=== PATIENT | female | born 1940 | race Caucasian/White ===

== ENCOUNTER 2017-02-08 19:36 | Inpatient (IN) | payer MEDICARE ==
[~2017-02-08] VITALS: Ht 152.4 cm; Wt 51.6 kg
[~2017-02-08 19:36] MED LIST: ALBU8.5H5 INH; ALPR0.5T10 PO; AMIT50TA PO; ASPI-515 PO; BUDE10.2 INH; CITA20TA9 PO; ENAL10TA PO; FURO-93 PO; MAGN400T7 PO; METO25TA91 PO; MONT10TA6 PO; NITR1PAT11 TD; OXYB5TAB7 PO; POTA10TA11 PO; PREDNISONE; TIOT18CA INH
[2017-02-08] MEDS ORDERED: MORPHINE SULFATE 4 MG/ML, 1ML ONE (19:48)
[2017-02-08] MEDS ORDERED: NITROGLYCERIN/D5W PMX 250 ML IV SCH (19:51)
[2017-02-08] MEDS ORDERED: SODIUM CHLORIDE 0.9% 1,000 ML IV ONE (19:51)
[2017-02-08] MEDS ORDERED: ASPIRIN 81 MG TABLET CHEW ONE (19:59)
[2017-02-08] MEDS ORDERED: HEPARIN 25,000 UNITS/500ML PMX 500 ML IV PRN (20:00)
[2017-02-08] MEDS ORDERED: HEPARIN 5,000 UNITS/ML, 1ML IV ONE (20:00)
[2017-02-08] MEDS ORDERED: HEPARIN 5,000 UNITS/ML, 1ML IV PRN (20:00)
[2017-02-08] MEDS ORDERED: SODIUM CHLORIDE FLUSH 10ML SYR IVF ONE ×2 (20:00)
[2017-02-08] MEDS ORDERED: MORPHINE SULFATE 4 MG/ML, 1ML IVPush PRN (20:00)
[2017-02-08] MEDS ORDERED: NITROGLYCERIN/D5W PMX 250 ML ONE (20:00)
[2017-02-08] MEDS ORDERED: HEPARIN 5,000 UNITS/ML, 1ML ONE (20:00)
[2017-02-08] MEDS ORDERED: ASPIRIN 81 MG TABLET CHEW PO ONE (20:00)
[2017-02-08] MEDS ORDERED: HEPARIN 25,000 UNITS/500ML PMX 500 ML ONE (20:16)
[2017-02-08 20:41] LABS: ASPARTATE AMINO TRANSFERASE 21 U/L (15-37); BLOOD UREA NITROGEN 25 mg/dL (7-18)
[2017-02-08 20:47] LABS: IS PT STATUS REG ER OR PRE ER? YES
[2017-02-08 20:53] LABS: ANTI-Xa-UNFRACTIONATED HEP 0.31 IU/mL (0.30-0.70)
[2017-02-08] MEDS ORDERED: PRED20TA PO (20:55)
[2017-02-08] MEDS ORDERED: HYDR-3144 PO (20:56)
[2017-02-08] MEDS ORDERED: TIZA2CAP PO (20:56)
[2017-02-08] MEDS ORDERED: GABA100C8 PO (20:57)
[2017-02-08] MEDS ORDERED: PANT40TA5 PO (20:59)
[2017-02-08] MEDS ORDERED: MELA1TAB15 PO (20:59)
[2017-02-08] MEDS ORDERED: DIPH25CA61 PO (21:03)
[2017-02-08] MEDS ORDERED: ROPI1TAB2 PO (21:06)
[2017-02-08] MEDS ORDERED: CARV6.252 PO (21:06)
[2017-02-08] MEDS ORDERED: FLUTICASONE NASAL (21:06)
[2017-02-08] MEDS ORDERED: FENTANYL PF 100 MCG/2ML ONE (21:28)
[2017-02-08] MEDS ORDERED: MIDAZOLAM 1 MG/ML, 5ML ONE (21:28)
[2017-02-08] MEDS ORDERED: VERAPAMIL 2.5 MG/ML, 2ML ONE (21:28)
[2017-02-08] MEDS ORDERED: BIVALIRUDIN 250 MG ONE (21:29)
[2017-02-08] MEDS ORDERED: HEPARIN 1,000 UNITS/ML, 10ML ONE (21:29)
[2017-02-08] MEDS ORDERED: TICAGRELOR 90 MG TABLET ONE (21:29)
[2017-02-08] MEDS ORDERED: LIDOCAINE 2%, 20ML ONE (21:29)
[2017-02-08] MEDS ORDERED: DIPHENHYDRAMINE 50 MG/ML, 1ML ONE (21:35)
[2017-02-08] MEDS ORDERED: methylPREDNISolone SOD SUCC 125 MG/2 ML ONE (21:36)
[2017-02-08] MEDS: SODIUM CHLORIDE 0.9% 1,000 ML IV SCH (22:09)
[2017-02-08] MEDS ORDERED: ONDANSETRON 2MG/ML, 2ML IVPush PRN (22:30)
[2017-02-08] MEDS ORDERED: ACETAMINOPHEN 325 MG TABLET PO PRN (22:30)
[2017-02-08] MEDS ORDERED: DIPHENHYDRAMINE 25 MG CAPSULE PO PRN (22:30)
[2017-02-08] MEDS ORDERED: BISACODYL 5 MG EC TABLET PO PRN (22:30)
[2017-02-08] MEDS ORDERED: MONTELUKAST 10 MG TABLET PO SCH (23:00)
[2017-02-08] MEDS: HYDROcodone/APAP 10/325 MG TABLET PO SCH (23:00)
[2017-02-09 00:30] VITALS: BP 131/81
[2017-02-09] MEDS ORDERED: ALBUTEROL SULFATE 2.5 MG/3 ML NPPB PRN (00:30)
[2017-02-09] MEDS ORDERED: ATORVASTATIN 80 MG TABLET PO SCH (01:00)
[2017-02-09] MEDS: HYDROcodone/APAP 10/325 MG TABLET PO SCH ×2 (03:31→11:00)
[2017-02-09 05:20] LABS: BLOOD UREA NITROGEN 25 mg/dL (7-18)
[2017-02-09 05:27] LABS: IS PT STATUS REG ER OR PRE ER? NO
[2017-02-09] MEDS: SODIUM CHLORIDE 0.9% 1,000 ML IV SCH ×2 (06:06→14:09)
[2017-02-09 07:19] VITALS: BP 153/79
[2017-02-09] MEDS ORDERED: ROPINIROLE 1MG TABLET PO SCH (09:00)
[2017-02-09] MEDS ORDERED: CITALOPRAM 20 MG TABLET PO SCH (09:00)
[2017-02-09] MEDS ORDERED: CLOPIDOGREL 75 MG TABLET PO SCH (09:00)
[2017-02-09] MEDS ORDERED: ASPIRIN 81 MG TABLET CHEW PO SCH (09:00)
[2017-02-09] MEDS ORDERED: IPRATROPIUM 0.5 MG/2.5 ML INHA NPPB SCH (09:00)
[2017-02-09] MEDS: ALBUTEROL/IPRATROPIUM 2.5MG/0.5MG, 3 ML NPPB SCH ×2 (09:20→14:50)
[2017-02-09] MEDS ORDERED: LISINOPRIL 5 MG TABLET PO SCH (09:30)
[2017-02-09] MEDS ORDERED: ALBUTEROL/IPRATROPIUM 2.5MG/0.5MG, 3 ML ONE (09:34)
[2017-02-09] MEDS ORDERED: PANTOPROZOLE 40MG TABLET PO SCH (10:30)
[2017-02-09] MEDS ORDERED: CLOP75TA PO (10:32)
[2017-02-09] MEDS ORDERED: ATOR80TA75 PO (10:32)
[2017-02-09] MEDS ORDERED: LISI5TAB7 PO (10:32)
[2017-02-09] MEDS ORDERED: METO25TA91 PO (10:32)
[2017-02-09] MEDS ORDERED: MIDAZOLAM 1 MG/ML, 5ML ONE (10:56)
[2017-02-09] MEDS ORDERED: morphine SULFATE 10 MG/ML, 1ML ONE (10:57)
[2017-02-09] MEDS ORDERED: morphine SULFATE 10 MG/ML, 1ML IVPush PRN (11:00)
[2017-02-09 11:38] VITALS: BP 114/71
[2017-02-09] MEDS: GABAPENTIN 100 MG CAPSULE PO SCH ×2 (12:31→15:05)
[2017-02-09 13:15] VITALS: BP 116/67
[2017-02-09] MEDS ORDERED: METOPROLOL SUCCINATE 25 MG TAB.ER.24H PO SCH (21:00)
== END 2017-02-09 16:35 | disposition home or self-care (01) | DRG 280 ==
LOC: ED 21:08 → EDIP 21:09 → ED 21:23 → 5SO 22:31 → DCLOUNGE 02-09 16:00
PROVIDERS: ADMIT Internal Medicine; ATTEND Internal Medicine
PROC: 4A023N7 Measurement of Cardiac Sampling and Pressure, Left Heart, Percutaneous Approach (ICD-10-PCS; principal; 2017-02-08)
PROC: B2151ZZ Fluoroscopy of Left Heart using Low Osmolar Contrast (ICD-10-PCS; 2017-02-08)
PROC: B2111ZZ Fluoroscopy of Multiple Coronary Arteries using Low Osmolar Contrast (ICD-10-PCS; 2017-02-08)
DX: I21.4 Non-ST elevation (NSTEMI) myocardial infarction (principal); I50.21 Acute systolic (congestive) heart failure; I13.0 Hypertensive heart and chronic kidney disease with heart failure and stage 1 through stage 4 chronic kidney disease, or unspecified chronic kidney disease; E44.0 Moderate protein-calorie malnutrition; N18.3 Chronic kidney disease, stage 3 (moderate); I67.1 Cerebral aneurysm, nonruptured; J44.9 Chronic obstructive pulmonary disease, unspecified; M79.7 Fibromyalgia; K21.9 Gastro-esophageal reflux disease without esophagitis; I25.10 Atherosclerotic heart disease of native coronary artery without angina pectoris; I08.2 Rheumatic disorders of both aortic and tricuspid valves; F17.200 Nicotine dependence, unspecified, uncomplicated; I25.110 Atherosclerotic heart disease of native coronary artery with unstable angina pectoris; I25.2 Old myocardial infarction; Z79.02 Long term (current) use of antithrombotics/antiplatelets; Z79.82 Long term (current) use of aspirin; Z86.73 Personal history of transient ischemic attack (TIA), and cerebral infarction without residual deficits; Z86.79 Personal history of other diseases of the circulatory system; Z88.0 Allergy status to penicillin; Z93.3 Colostomy status; Z90.722 Acquired absence of ovaries, bilateral; Z90.79 Acquired absence of other genital organ(s); Z88.1 Allergy status to other antibiotic agents; Z68.22 Body mass index [BMI] 22.0-22.9, adult
CPT/HCPCS: 36415; 71010; 80048; 80053; 82040; 83880; 84484; 85014; 85018; 85025; 85520; 85610; 85730; 93005; 93306; 93458; 94640; 96365; C1760; C1894; J0583; J1644; J2250; J3010; J3490; J7620; J1200; J2270; J2930; J7030; Q9967

== ENCOUNTER 2017-12-23 01:52 | Inpatient (IN) | payer MEDICARE ==
[~2017-12-23] VITALS: Ht 152.4 cm; Wt 52.5 kg
[~2017-12-23 01:52] MED LIST changes: +ATOR-2 PO; +CARV6.252 PO; +CLOP75TA PO; +DIPH25CA61 PO; +FLUTICASONE NASAL NAS; +GABA-826 PO; +HYDR-3245 PO; +LISI5TAB7 PO; +MELA1TAB15 PO; +PANT40TA5 PO; +PRED20TA PO; +ROPI1TAB2 PO; +TIZA2CAP PO
[2017-12-23 02:41] LABS: BASOPHILS # (AUTO) 0.04 x10^3/uL (0-0.1); BASOPHILS % (AUTO) 1 % (0-1); EOSINOPHILS % (AUTO) 4 % (1-7); LYMPHOCYTES # (AUTO) 2.08 x10^3/uL (1-3.4); LYMPHOCYTES % (AUTO) 29 % (22-44); MD NO; MEAN CORPUSCULAR HEMOGLOBIN 31.5 pg (27.0-34.8); MEAN CORPUSCULAR HGB CONC 33.7 g/dL (32.4-35.8); MEAN CORPUSCULAR VOLUME 93.6 fL (80-100); MEAN PLATELET VOLUME 7.8 fL (7.4-10.4); MONOCYTES # (AUTO) 0.57 x10^3/uL (0.2-0.8); MONOCYTES % (AUTO) 8 % (2-9); NEUTROPHILS # (AUTO) 4.14 x10^3/uL (1.8-6.8); NEUTROPHILS % (AUTO) 58 % (42-75); PLATELET COUNT 172 x10^3/uL (130-400); RED BLOOD COUNT 3.14 x10^6/uL (3.82-5.3); RED CELL DISTRIBUTION WIDTH 14.1 % (9.6-15.2)
[2017-12-23 02:52] LABS: ALBUMIN 3.1 g/dL (3.4-5.0); ANION GAP 4 mmol/L (5-15); CALCIUM 8.6 mg/dL (8.5-10.1); CHLORIDE 112 mmol/L (98-107); CREATININE 2.02 mg/dL (0.55-1.02)
[2017-12-23 02:55] LABS: TROPONIN I < 0.015 ng/mL (0.000-0.045)
[2017-12-23] MEDS ORDERED: SODIUM CHLORIDE 0.9% 1,000 ML IV ONE (03:24)
[2017-12-23] MEDS ORDERED: ONDANSETRON 2MG/ML, 2ML IVPush PRN ×2 (03:30→05:00)
[2017-12-23 04:07] VITALS: BP 105/62
[2017-12-23] MEDS ORDERED: SODIUM CHLORIDE 0.9% 1,000 ML IV SCH (04:37)
[2017-12-23] MEDS ORDERED: hydrALAzine 20 MG/ML, 1ML IVPush PRN (05:00)
[2017-12-23] MEDS ORDERED: HYDROcodone/APAP 10/325 MG TABLET PO SCH (05:00)
[2017-12-23] MEDS ORDERED: POLYETHYLENE GLYCOL 17 GM PACKET PO PRN (05:00)
[2017-12-23] MEDS ORDERED: ENALAPRILAT 1.25 MG/ML, 2ML IVPush PRN (05:00)
[2017-12-23] MEDS ORDERED: ACETAMINOPHEN 325 MG TABLET PO PRN (05:00)
[2017-12-23] MEDS ORDERED: BISACODYL 10 MG SUPP PR PRN (05:00)
[2017-12-23] MEDS ORDERED: OXYcodone IR 5MG TABLET PO PRN (05:00)
[2017-12-23] MEDS ORDERED: ALBUTEROL/IPRATROPIUM 2.5MG/0.5MG, 3 ML NPPB PRN (05:00)
[2017-12-23] MEDS ORDERED: morphine SULFATE 10 MG/ML, 1ML IVPush PRN (05:00)
[2017-12-23] MEDS: CEFTRIAXONE PMX 1GM/50ML 50 ML IV SCH (05:30)
[2017-12-23] MEDS: GABAPENTIN 100 MG CAPSULE PO SCH ×4 (06:13→22:20)
[2017-12-23] MEDS: HEPARIN 5,000 UNITS/ML, 1ML SQ SCH ×3 (06:14→22:20)
[2017-12-23] MEDS: methylPREDNISolone SOD SUCC 125 MG/2 ML IVPush SCH ×4 (06:15→22:20)
[2017-12-23 06:35] VITALS: BP_SYST 93; BP_SYST 96; BP_DIAS 57
[2017-12-23 06:53] LABS: TROPONIN I < 0.015 ng/mL (0.000-0.045)
[2017-12-23] MEDS: ALBUTEROL/IPRATROPIUM 2.5MG/0.5MG, 3 ML NPPB SCH ×4 (07:00→19:09)
[2017-12-23 07:01] LABS: FREE T4 (FREE THYROXINE) 1.05 ng/dL (0.76-1.46); THYROID STIMULATING HORMONE 0.901 mIU/L (0.358-3.740)
[2017-12-23] MEDS: NICOTINE 7 MG/24 HR PATCH.TD24 TD SCH (09:00)
[2017-12-23] MEDS ORDERED: LISINOPRIL 5 MG TABLET PO SCH (09:00)
[2017-12-23 10:12] LABS: HEMOGLOBIN A1C 5.6 % (4.2-6.3)
[2017-12-23] MEDS: HYDROcodone/APAP 10/325 MG TABLET PO PRN ×2 (10:40→17:08)
[2017-12-23] MEDS: MAGNESIUM OXIDE 400 MG TABLET PO SCH (10:40)
[2017-12-23] MEDS: SENNA/DOCUSATE TABLET PO SCH (10:41)
[2017-12-23] MEDS: CLOPIDOGREL 75 MG TABLET PO SCH (10:41)
[2017-12-23] MEDS: PANTOPROZOLE 40MG TABLET PO SCH (10:41)
[2017-12-23] MEDS: ROPINIROLE 1MG TABLET PO SCH ×3 (10:41→22:20)
[2017-12-23] MEDS: ASPIRIN 81 MG TABLET EC PO SCH (11:12)
[2017-12-23] MEDS: FLUTICASONE/VILANTEROL 200-25MCG/INH INH SCH (11:12)
[2017-12-23] MEDS: DOXYCYCLINE 100MG TABLET PO SCH ×2 (11:12→22:20)
[2017-12-23 11:26] LABS: MICROSCOPIC AUTO
[2017-12-23 11:27] LABS: CULTURE INDICATED? YES
[2017-12-23 12:58] LABS: TROPONIN I < 0.015 ng/mL (0.000-0.045)
[2017-12-23 15:46] VITALS: BP 102/59
[2017-12-23 19:45] VITALS: BP 100/58
[2017-12-23] MEDS: ATORVASTATIN 80 MG TABLET PO SCH (22:20)
[2017-12-23] MEDS: MONTELUKAST 10 MG TABLET PO SCH (22:20)
[2017-12-24] MEDS: HYDROcodone/APAP 10/325 MG TABLET PO PRN ×3 (01:06→20:38)
[2017-12-24 01:53] VITALS: BP 101/54
[2017-12-24] MEDS: HEPARIN 5,000 UNITS/ML, 1ML SQ SCH ×3 (04:41→20:29)
[2017-12-24] MEDS: CEFTRIAXONE PMX 1GM/50ML 50 ML IV SCH (04:41)
[2017-12-24] MEDS: GABAPENTIN 100 MG CAPSULE PO SCH ×4 (04:42→20:32)
[2017-12-24] MEDS: methylPREDNISolone SOD SUCC 125 MG/2 ML IVPush SCH ×4 (04:42→23:14)
[2017-12-24 06:00] LABS: BASOPHILS # (AUTO) 0.01 x10^3/uL (0-0.1); BASOPHILS % (AUTO) 0 % (0-1); EOSINOPHILS % (AUTO) 0 % (1-7); LYMPHOCYTES # (AUTO) 0.74 x10^3/uL (1-3.4); LYMPHOCYTES % (AUTO) 12 % (22-44); MD NO; MEAN CORPUSCULAR HEMOGLOBIN 31.8 pg (27.0-34.8); MEAN CORPUSCULAR VOLUME 93.4 fL (80-100); MEAN PLATELET VOLUME 7.9 fL (7.4-10.4); MONOCYTES % (AUTO) 2 % (2-9); NEUTROPHILS # (AUTO) 5.33 x10^3/uL (1.8-6.8); NEUTROPHILS % (AUTO) 86 % (42-75); PLATELET COUNT 159 x10^3/uL (130-400); RED BLOOD COUNT 3.12 x10^6/uL (3.82-5.3); RED CELL DISTRIBUTION WIDTH 14.3 % (9.6-15.2)
[2017-12-24 06:12] LABS: CHLORIDE 107 mmol/L (98-107)
[2017-12-24 06:20] LABS: ALANINE AMINOTRANSFERASE 22 U/L (12-78); ALBUMIN 3.2 g/dL (3.4-5.0); ALKALINE PHOSPHATASE 71 U/L (45-117); ANION GAP 10 mmol/L (5-15); BILIRUBIN,TOTAL 0.5 mg/dL (0.2-1.0); CALCIUM 8.7 mg/dL (8.5-10.1); CHOL/HDL RATIO 1.6; CHOLESTEROL, TOTAL 105 mg/dL (140-239); CREATININE 1.91 mg/dL (0.55-1.02); HDL CHOL % 62 % (28-40); HDL CHOLESTEROL (DIRECT) 65 mg/dL (40-60); LDL CHOLESTEROL,CALCULATED 32 mg/dL (54-169); LDL/HDL RATIO 0.5 (0.5-3.0); TOTAL PROTEIN 6.2 g/dL (6.4-8.2); TRIGLYCERIDES 41 mg/dL (50-200); VLDL CHOLESTEROL 8 mg/dL (0-25)
[2017-12-24] MEDS: ALBUTEROL/IPRATROPIUM 2.5MG/0.5MG, 3 ML NPPB SCH ×4 (07:05→20:50)
[2017-12-24 07:32] VITALS: BP 126/71
[2017-12-24] MEDS: DOXYCYCLINE 100MG TABLET PO SCH ×2 (08:17→20:29)
[2017-12-24] MEDS: SENNA/DOCUSATE TABLET PO SCH (08:17)
[2017-12-24] MEDS: ROPINIROLE 1MG TABLET PO SCH ×3 (08:18→20:29)
[2017-12-24] MEDS: CLOPIDOGREL 75 MG TABLET PO SCH (08:19)
[2017-12-24] MEDS: ASPIRIN 81 MG TABLET EC PO SCH (08:20)
[2017-12-24] MEDS: PANTOPROZOLE 40MG TABLET PO SCH (08:20)
[2017-12-24] MEDS: FLUTICASONE/VILANTEROL 200-25MCG/INH INH SCH (08:22)
[2017-12-24] MEDS: NICOTINE 7 MG/24 HR PATCH.TD24 TD SCH (08:24)
[2017-12-24] MEDS: MAGNESIUM OXIDE 400 MG TABLET PO SCH (13:24)
[2017-12-24 14:19] VITALS: BP 113/63
[2017-12-24 18:27] VITALS: BP 110/60
[2017-12-24] MEDS: ATORVASTATIN 80 MG TABLET PO SCH (20:29)
[2017-12-24] MEDS: MONTELUKAST 10 MG TABLET PO SCH (20:30)
[2017-12-24 21:14] VITALS: BP 117/65
[2017-12-24 22:14] LABS: TROPONIN I < 0.015 ng/mL (0.000-0.045)
[2017-12-25 02:14] VITALS: BP 104/58
[2017-12-25 05:09] LABS: MEAN CORPUSCULAR HEMOGLOBIN 31.4 pg (27.0-34.8); MEAN CORPUSCULAR HGB CONC 33.5 g/dL (32.4-35.8); MEAN CORPUSCULAR VOLUME 93.9 fL (80-100); MEAN PLATELET VOLUME 8.3 fL (7.4-10.4); PLATELET COUNT 167 x10^3/uL (130-400); RED BLOOD COUNT 3.16 x10^6/uL (3.82-5.3); RED CELL DISTRIBUTION WIDTH 14.4 % (9.6-15.2)
[2017-12-25] MEDS: GABAPENTIN 100 MG CAPSULE PO SCH ×2 (05:19→11:07)
[2017-12-25] MEDS: HEPARIN 5,000 UNITS/ML, 1ML SQ SCH ×2 (05:19→13:59)
[2017-12-25] MEDS: methylPREDNISolone SOD SUCC 125 MG/2 ML IVPush SCH ×2 (05:19→11:07)
[2017-12-25] MEDS: CEFTRIAXONE PMX 1GM/50ML 50 ML IV SCH (05:20)
[2017-12-25] MEDS: HYDROcodone/APAP 10/325 MG TABLET PO PRN ×2 (05:22→15:17)
[2017-12-25 05:24] LABS: CALCIUM 8.8 mg/dL (8.5-10.1); CHLORIDE 108 mmol/L (98-107)
[2017-12-25 05:28] LABS: ANION GAP 10 mmol/L (5-15); CREATININE 1.98 mg/dL (0.55-1.02)
[2017-12-25 05:48] LABS: BASOPHILS % (AUTO) 0 % (0-1); EOSINOPHILS % (AUTO) 0 % (1-7); LYMPHOCYTES # (AUTO) 0.48 x10^3/uL (1-3.4); LYMPHOCYTES % (AUTO) 4 % (22-44); MD MORPH REVIEW ONLY; MONOCYTES # (AUTO) 0.28 x10^3/uL (0.2-0.8); MONOCYTES % (AUTO) 3 % (2-9); NEUTROPHILS # (AUTO) 10.47 x10^3/uL (1.8-6.8); NEUTROPHILS % (AUTO) 93 % (42-75)
[2017-12-25 05:49] LABS: ECHINOCYTES 1+
[2017-12-25 05:50] LABS: <PLATELET ESTIMATE> ADEQUATE; <PLT MORPHOLOGY> NORMAL PLT MORPH
[2017-12-25] MEDS: ALBUTEROL/IPRATROPIUM 2.5MG/0.5MG, 3 ML NPPB SCH ×2 (07:42→11:00)
[2017-12-25 08:00] VITALS: BP 119/63
[2017-12-25] MEDS: ROPINIROLE 1MG TABLET PO SCH (08:22)
[2017-12-25] MEDS: SENNA/DOCUSATE TABLET PO SCH (08:22)
[2017-12-25] MEDS: DOXYCYCLINE 100MG TABLET PO SCH (08:23)
[2017-12-25] MEDS: ASPIRIN 81 MG TABLET EC PO SCH (08:23)
[2017-12-25] MEDS: CLOPIDOGREL 75 MG TABLET PO SCH (08:23)
[2017-12-25] MEDS: PANTOPROZOLE 40MG TABLET PO SCH (08:23)
[2017-12-25] MEDS: NICOTINE 7 MG/24 HR PATCH.TD24 TD SCH (08:23)
[2017-12-25] MEDS: FLUTICASONE/VILANTEROL 200-25MCG/INH INH SCH (08:24)
[2017-12-25] MEDS: MAGNESIUM OXIDE 400 MG TABLET PO SCH (11:08)
[2017-12-25] MEDS ORDERED: DOXY100T PO (12:12)
[2017-12-25] MEDS ORDERED: PRED20TA PO (12:12)
[2017-12-25] MEDS ORDERED: CEFD300C37 PO (12:12)
[2017-12-25 13:06] VITALS: BP 115/61
[2017-12-26] MEDS ORDERED: ALBUTEROL/IPRATROPIUM 2.5MG/0.5MG, 3 ML NPPB PRN (07:00)
== END 2017-12-25 16:00 | disposition home or self-care (01) | DRG 682 ==
LOC: ED 02:35 → EDIP 03:25 → 5SO 03:58
PROVIDERS: ADMIT Internal Medicine; ATTEND Internal Medicine
DX: N17.0 Acute kidney failure with tubular necrosis (principal); J96.01 Acute respiratory failure with hypoxia; E44.0 Moderate protein-calorie malnutrition; I95.9 Hypotension, unspecified; I13.0 Hypertensive heart and chronic kidney disease with heart failure and stage 1 through stage 4 chronic kidney disease, or unspecified chronic kidney disease; I72.8 Aneurysm of other specified arteries; I50.9 Heart failure, unspecified; J44.1 Chronic obstructive pulmonary disease with (acute) exacerbation; N39.0 Urinary tract infection, site not specified; J44.0 Chronic obstructive pulmonary disease with (acute) lower respiratory infection; B96.20 Unspecified Escherichia coli [E. coli] as the cause of diseases classified elsewhere; D63.1 Anemia in chronic kidney disease; E78.5 Hyperlipidemia, unspecified; F17.210 Nicotine dependence, cigarettes, uncomplicated; I25.10 Atherosclerotic heart disease of native coronary artery without angina pectoris; I25.2 Old myocardial infarction; I45.10 Unspecified right bundle-branch block; J20.9 Acute bronchitis, unspecified; K21.9 Gastro-esophageal reflux disease without esophagitis; M79.7 Fibromyalgia; N18.3 Chronic kidney disease, stage 3 (moderate); Z86.73 Personal history of transient ischemic attack (TIA), and cerebral infarction without residual deficits; Z90.49 Acquired absence of other specified parts of digestive tract; Z90.710 Acquired absence of both cervix and uterus; Z93.3 Colostomy status; Z68.22 Body mass index [BMI] 22.0-22.9, adult
CPT/HCPCS: 36415; 71045; 71250; 78582; 80048; 80053; 80061; 81001; 82040; 83036; 83735; 84439; 84443; 84484; 85025; 87070; 87077; 87086; 87186; 87205; 93005; 93306; 94640; 99285; J0696; J1644; J2405; J7620; A9540; A9558; C9898; J2930; J7030

== ENCOUNTER 2019-04-29 08:00 | Outpatient (CLI) | payer MEDICARE | END 2019-04-29 23:59 | disposition home or self-care (01) | LOC: SUSANVILLE 08:00 | PROVIDERS: ATTEND Internal Medicine Cardiovascular Disease | DX: I07.1 Rheumatic tricuspid insufficiency (principal); J44.9 Chronic obstructive pulmonary disease, unspecified; I12.9 Hypertensive chronic kidney disease with stage 1 through stage 4 chronic kidney disease, or unspecified chronic kidney disease; N18.3 Chronic kidney disease, stage 3 (moderate) | CPT/HCPCS: 93306 ==